=== PATIENT | female | born 1975 | race Caucasian/White ===

== ENCOUNTER 2016-08-13 18:33 | Emergency (ER) | payer BC ==
[~2016-08-13] VITALS: Ht 157.5 cm; Wt 80.3 kg
[~2016-08-13 18:33] MED LIST: AMOX500T PO; PRED20 PO; ZOFR4TAB3 SL
[2016-08-13 18:39] VITALS: BP 111/79; PULSE 110; RESP 16; TEMP 98.3; O2SAT 96
--- NOTE | 2016-08-13 19:30 | PD ---
HPI Chief Complaint: Cold / Flu Symptoms Time Seen by Provider: 19:23 Travel History International Travel<30 days: No Contact w/Intl Traveler<30days: No Traveled to known affect area: No History of Present Illness HPI 41-year-old female presents to the emergency room for evaluation of nonproductive cough, congestion, sore throat, body aches, and earache for the past 2 days. Patient's grandbaby was diagnosed with influenza type B last week and she has been with her multiple times since then. Patient reports subjective fevers but has not actually taken her temperature. Been taking over- the-counter Mucinex without significant relief in symptoms. She is requesting work note. PFSH Past Medical History Hx Anticoagulant Therapy: No Cardiovascular Problems: No Chemotherapy: No Cerebrovascular Accident: No Diabetes: No Diminished Hearing: No GERD: Yes Respiratory: No Ulcer: Yes Tetanus Vaccination: Unknown ?: Not : 3 Para: 2 : 1 Tubal Ligation: Yes (1995) Past Surgical History Appendectomy: Yes Hysterectomy: Yes Tonsillectomy: Yes Social History Alcohol Use: No Tobacco Use: Yes (< 1 PPD) Substance Use: No Allergies-Medications (Allergen,Severity, Reaction): Coded Allergies: Compazine (Verified Adverse Reaction, Intermediate, JITTERY ALL OVER, 08/13) Reported Meds & Prescriptions Reported Meds & Active Scripts Active Review of Systems Except as stated in HPI: all other systems reviewed are Neg Physical Exam Narrative GENERAL: Well-nourished, well-developed female in no acute distress. Afebrile. Ambulatory. SKIN: Warm and dry. HEAD: Normocephalic. EYES: No scleral icterus. No injection or drainage. ENT: Mucosa pink and moist. Mild erythema without exudates. No uvular edema. No uvular, palatal, or tonsillar deviation. Airway patent. Nasal turbinates appear normal without nasal blood, purulent drainage or septal hematoma. EARS: Bilateral pinnae and external canals appear within normal limits. Bilateral tympanic membranes without coughing occasionally. Erythema, dullness or perforation. NECK: Supple, trachea midline. No JVD or lymphadenopathy. CARDIOVASCULAR: Regular rate and rhythm without murmurs, gallops, or rubs. RESPIRATORY: Breath sounds equal bilaterally. No accessory muscle use. No crackles, rales, wheezes, or rhonchi. Data Data Last Documented VS Vital Signs Date Time Temp Pulse Resp B/P Pulse Ox O2 Delivery O2 Flow Rate FiO2 08/13/16 18:39 98.3 110 16 111/79 96 MDM Medical Decision Making Medical Screen Exam Complete: Yes Emergency Medical Condition: Yes Medical Record Reviewed: Yes Differential Diagnosis Influenza versus upper respiratory infection versus bronchitis Narrative Course 41-year-old female presents to the emergency room for evaluation of cough and cold symptoms for the past 2 days. Patient is afebrile and well-appearing in the emergency room. Vital signs stable. Resting comfortably in bed. Physical exam reveals no crackles, rales, wheezes, or rhonchi. Throat is mildly erythematous without exudate or edema. Bilateral tympanic membranes without evidence of infection. Patient's granddaughter was diagnosed with influenza B one week ago. History and physical exam are consistent with influenza. No indication for testing as patient is outside the window to receive Tamiflu. She was reassured and told to continue [id number] medications and follow up with a primary care physician or return for worsening symptoms. Given work release. She understands and agrees to this plan. Diagnosis Primary Impression: Influenza Referrals: Primary Care Physician Patient Instructions: General Instructions, Influenza (ED) Departure Forms: Work Release Enter return to work date: Aug 16, 2016 Additional Instructions: Rest and drink plenty of fluids. Continue [id number] medications for symptoms. Take ibuprofen with food as directed, as needed for pain. Follow-up with a primary care physician. Return to the emergency room for worsening symptoms. Scripts No Active Prescriptions or Reported Meds Disposition: 01 DISCHARGE HOME Condition: Stable Bree Fontana Aug 13, 2016 19:30 Bree Fontana Aug 13, 2016 19:30
== END 2016-08-13 19:43 | disposition home or self-care (01) ==
LOC: PHED 18:33 → PHEFT 19:43
DX: J11.1 Influenza due to unidentified influenza virus with other respiratory manifestations (principal); F17.200 Nicotine dependence, unspecified, uncomplicated
CPT/HCPCS: 99283